=== PATIENT | female | born 1990 | race African-American/Black ===

== ENCOUNTER 2019-02-11 21:06 | Emergency (ER) | payer MEDICAID ==
[~2019-02-11] VITALS: Ht 167.6 cm; Wt 61.0 kg
[~2019-02-11 21:06] MED LIST: albuterol
[2019-02-11] MEDS ORDERED: DEXAMETHASONE 4MG/ML 1ML VIAL IV ONE (22:00)
[2019-02-11] MEDS ORDERED: DEXAMETHASONE 10 MG/ML VIAL ONE (22:12)
[2019-02-11] MEDS ORDERED: KETOROLAC 30MG/ML VIAL IV ONE (23:30)
[2019-02-12 00:15] VITALS: BP 127/83
== END 2019-02-12 00:33 | disposition home or self-care (01) ==
LOC: ER 21:06
DX: O99.89 Other specified diseases and conditions complicating pregnancy, childbirth and the puerperium (principal); T88.6XXA Anaphylactic reaction due to adverse effect of correct drug or medicament properly administered, initial encounter; R00.0 Tachycardia, unspecified; T43.3X5A Adverse effect of phenothiazine antipsychotics and neuroleptics, initial encounter; R03.0 Elevated blood-pressure reading, without diagnosis of hypertension; Z3A.12 12 weeks gestation of pregnancy; Y92.098 Other place in other non-institutional residence as the place of occurrence of the external cause
CPT/HCPCS: 96374; 96375; 99283; J1100; J1885